=== PATIENT | female | born 1980 | race Hispanic/Latino ===

== ENCOUNTER 2018-01-22 09:30 | Emergency (ER) | payer SELFPAY ==
[~2018-01-22] VITALS: Ht 152.4 cm; Wt 59.2 kg
[~2018-01-22 09:30] MED LIST: AMOXICILLIN500 MG PO; BENADRYL 50MG C50 MG OR; CIPRO500 MG OR; MEDDOSEPAK OR; NAPROSYN500 MG OR; NO MEDS; ULTRAM50 MG OR; [UNRECOGNIZED DRUG - OTHER] OR
[2018-01-22 11:03] LABS: HEMATOCRIT 31.2 % (37.0-47.0); HEMOGLOBIN 9.4 g/dl (12.0-16.0); IMMATURE GRANULOCYTES 0.4 % (0.0-1.0); MEAN CELL VOLUME 71.6 fL CALC (80.0-100.0); MEAN CORPUSCULAR HGB 21.6 pG CALC (26.0-32.0); MEAN CORPUSCULAR HGB CONC 30.1 g/L CALC (32.0-36.0); NEUT# 5.39 thou/uL (2.00-7.15); RED BLOOD COUNT 4.36 mill/uL (4.20-5.60); RED CELL DISTRI WIDTH 18.4 % (11.5-15.5); URINE BILIRUBIN - DIPSTICK NEGATIVE (NEGATIVE); URINE BLOOD DIPSTICK NEGATIVE (NEGATIVE); URINE CLARITY SL CLOUDY; URINE COLOR YELLOW; URINE GLUCOSE - DIPSTICK NEGATIVE (NEGATIVE); URINE KETONE NEGATIVE (NEGATIVE); URINE LEUK ESTERASE NEGATIVE (NEGATIVE); URINE NITRITE - DIPSTICK NEGATIVE (Negative); URINE PH 6.5 (4.5-8.0); URINE PROTEIN - DIPSTICK NEGATIVE (NEG-TRACE); URINE UROBILINOGEN - DIPSTICK 0.2 E.U./dL (0.2)
[2018-01-22 11:04] LABS: INFLUENZA A NONE DETECTED (NONE DETECT); INFLUENZA B NONE DETECTED (NONE DETECT)
[2018-01-22 11:08] LABS: BARBITURATES NEGATIVE (NEGATIVE); COCAINE NEGATIVE (NEGATIVE); METHADONE NEGATIVE (NEGATIVE); OXCYCODONE NEGATIVE (NEGATIVE); TETRAHYDROCANNABIONOL NEGATIVE (NEGATIVE); TRICYLIC ANTIDEPRESSANTS NEGATIVE (NEGATIVE)
[2018-01-22 11:28] LABS: ALBUMIN 4.3 g/dL (3.2-5.0); ALKALINE PHOSPHATASE 113 u/l (38-126); ANION GAP 17 (6-22 (CALC)); BILIRUBIN, TOTAL 0.4 mg/dL (0.0-1.4); BUN 9 mg/dL (7-17); BUN/CREATININE RATIO 17 (12-20 (CALC)); CARBON DIOXIDE 24 mmol/l (22-30); CHLORIDE 104 mmol/l (95-108); CREATININE 0.5 mg/dL (0.5-1.0); GFR > 60 ML/MIN (>=60 (CALC)); GFR FOR AFR.AMER. > 60 ML/MIN (>=60 (CALC)); POTASSIUM 3.9 mmol/l (3.5-5.1); SGOT/AST 29 u/l (14-36); SGPT/ALT 33 u/l (9-52); SODIUM 141 mmol/l (137-146); TOTAL PROTEIN 7.6 g/dL (6.3-8.2)
[2018-01-22] MEDS ORDERED: ZITHROMAX250 MG PO (12:52)
[2018-01-22] MEDS ORDERED: TORADOL PO (12:52)
[2018-01-22 13:00] VITALS: BP 112/69
== END 2018-01-22 13:00 | disposition home or self-care (01) | DRG 866 ==
LOC: ED 09:30
PROVIDERS: Emergency Medicine
DX: B34.9 Viral infection, unspecified (principal)

== ENCOUNTER 2021-02-02 | Emergency (ER) | payer SELFPAY ==
[~2021-02-02] MED LIST changes: +TORADOL PO; +ZITHROMAX250 MG PO
[2021-02-02] MEDS ORDERED: [UNRECOGNIZED DRUG - OTHER] TOP (01:13)
[2021-02-02] MEDS ORDERED: BENADRYL 50MG C50 MG PO (01:13)
== END 2021-02-02 02:24 | disposition home or self-care (01) | DRG 607 ==
DX: L30.9 Dermatitis, unspecified (principal)